=== PATIENT | male | born 1960 | race African-American/Black ===

== ENCOUNTER 2016-06-02 10:03 | Inpatient (IN) | payer MEDICARE, MEDICAID ==
[~2016-06-02] VITALS: Ht 172.7 cm; Wt 86.2 kg
[~2016-06-02 10:03] MED LIST: FENTANYL1 EAC3 TDERMAL; IBUPROFEN600 MG ORAL; LORTAB 10 MG-3473 ML PO; NEXIUM40 M2 ORAL; NEXIUM40 MG ORAL; OXYCODONE HCL30 MG ORAL; PERCOCET 5-3251 EACH ORAL; SOMA350 MG PO
[2016-06-02] MEDS ORDERED: NORVASC10 MG ORAL (10:17)
[2016-06-02] MEDS ORDERED: CATAPRES0.1 MG ORAL (10:17)
[2016-06-02 10:50] LABS: BASOPHILS % (AUTO) 1.2 % (0.0-2.0); LYMPHOCYTES % (AUTO) 23.1 % (20.0-45.0); MEAN CORPUSCULAR HEMOGLOBIN 31.6 PG (27.0-31.0); MEAN CORPUSCULAR HGB CONC 32.2 G/DL (32.0-36.0); MEAN CORPUSCULAR VOLUME 98 FL (80-99); NEUTROPHILS % (AUTO) 67.7 % (45.0-75.0); PLATELET COUNT 216 K/UL (150-450); RED BLOOD COUNT 4.43 M/UL (4.70-6.10); WHITE BLOOD COUNT 6.9 K/UL (4.8-10.8)
[2016-06-02 11:06] LABS: ALANINE AMINOTRANSFERASE 9 U/L (3-41); ALBUMIN/GLOBULIN RATIO 1.2 (1.0-2.7); ANION GAP 12 (5-15); ASPARTATE AMINO TRANSFERASE 14 U/L (5-40); CALCIUM 9.6 mg/dL (8.6-10.2); CARBON DIOXIDE 27 mEQ/L (20-30); CHLORIDE 101 mEQ/L (98-107); GLOMERULAR FILTRATION RATE > 60 mL/min (>60); HEMOLYSIS 3; POTASSIUM 4.7 mEQ/L (3.4-4.9); SODIUM 140 mEQ/L (135-145); TOTAL PROTEIN 7.4 g/dL (6.6-8.7); TROPONIN I < 0.30 ng/mL (<=0.30)
[2016-06-02 11:16] LABS: CKMB 2.5 ng/mL (< 6.7)
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
[2016-06-02] MEDS ORDERED: Aspirin Baby 81mg ORAL ONE (12:30)
[2016-06-02] MEDS ORDERED: Morphine Sulfate 2mg/ml Inj IVP PRN (13:00)
[2016-06-02] MEDS ORDERED: LORazepam Inj 2mg/ml 1ml IV PRN (13:00)
[2016-06-02] MEDS ORDERED: Miralax 17gm pkt ORAL PRN (13:00)
[2016-06-02] MEDS ORDERED: Mylanta II UD 30ml ORAL PRN (13:00)
[2016-06-02 13:34] VITALS: BP 113/55
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
[2016-06-02 14:34] VITALS: BP 107/59
[2016-06-02] MEDS: Oxycodone/Acetaminophen 5-325 ORAL ONE ×2 (15:08→15:11)
[2016-06-02] MEDS: Morphine Sulfate 2mg/ml Inj IVP PRN ×2 (15:40→19:50)
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
[2016-06-02 17:10] VITALS: BP 139/77
[2016-06-02 20:00] VITALS: BP 149/78
[2016-06-02] MEDS: Zolpidem 5mg tab ORAL PRN (22:42)
[2016-06-02 23:54] VITALS: BP 149/85
[2016-06-03] MEDS: Morphine Sulfate 2mg/ml Inj IVP PRN ×3 (00:28→08:46)
[2016-06-03 04:30] VITALS: BP 152/85
[2016-06-03 07:30] LABS: ALANINE AMINOTRANSFERASE 8 U/L (3-41); ALBUMIN/GLOBULIN RATIO 1.4 (1.0-2.7); ANION GAP 12 (5-15); ASPARTATE AMINO TRANSFERASE 12 U/L (5-40); CALCIUM 9.3 mg/dL (8.6-10.2); CARBON DIOXIDE 28 mEQ/L (20-30); CHLORIDE 104 mEQ/L (98-107); CHOLESTEROL 253 mg/dL (< 200); CHOLESTEROL/HDL RATIO 4.6 (3.3-4.4); GLOMERULAR FILTRATION RATE > 60 mL/min (>60); HEMOLYSIS 6; LDL CHOLESTEROL (CALC.) 169 mg/dL (60-99); POTASSIUM 4.6 mEQ/L (3.4-4.9); SODIUM 144 mEQ/L (135-145); TOTAL PROTEIN 6.7 g/dL (6.6-8.7)
[2016-06-03 07:40] LABS: BASOPHILS % (AUTO) 1.7 % (0.0-2.0); EOSINOPHILS % (AUTO) 1.6 % (0.0-3.0); LYMPHOCYTES % (AUTO) 29.3 % (20.0-45.0); MEAN CORPUSCULAR HEMOGLOBIN 32.7 PG (27.0-31.0); MEAN CORPUSCULAR HGB CONC 33.5 G/DL (32.0-36.0); MEAN CORPUSCULAR VOLUME 98 FL (80-99); MEAN PLATELET VOLUME 9.3 FL (6.5-10.1); MONOCYTES % (AUTO) 9.8 % (1.0-10.0); NEUTROPHILS % (AUTO) 57.7 % (45.0-75.0); PLATELET COUNT 195 K/UL (150-450); RED BLOOD COUNT 4.18 M/UL (4.70-6.10); RED CELL DISTRIBUTION WIDTH 13.5 % (11.6-14.8); WHITE BLOOD COUNT 6.5 K/UL (4.8-10.8)
[2016-06-03 07:59] LABS: TROPONIN I < 0.30 ng/mL (<=0.30)
[2016-06-03 08:57] VITALS: BP 145/65
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
[2016-06-03] MEDS: HYDROmorphone 1mg/ml Carpuject IVP PRN ×3 (13:13→22:16)
[2016-06-03] MEDS: Oxycodone/Acetaminophen 5-325 ORAL PRN ×2 (16:27→19:59)
[2016-06-03 16:29] VITALS: BP 135/75
[2016-06-03 20:00] VITALS: BP 118/80
[2016-06-03 23:47] VITALS: BP 141/87
[2016-06-03] MEDS: Zolpidem 5mg tab ORAL PRN (23:49)
[2016-06-04] VITALS: BP 141/87
[2016-06-04] MEDS: Oxycodone/Acetaminophen 5-325 ORAL PRN (00:41)
[2016-06-04] MEDS: HYDROmorphone 1mg/ml Carpuject IVP PRN ×2 (02:06→06:18)
[2016-06-04 04:00] VITALS: BP 144/77
[2016-06-04 08:00] VITALS: BP 135/86
--- NOTE | 2016-06-04 10:15 | Consultation ---
History of Present Illness General Date patient seen: Jun 04, 2016 Present Illness Allergies: Coded Allergies: No Known Allergies (Verified , 07/05/09) Medication History Scheduled Amlodipine Besylate (Norvasc), 10 MG ORAL DAILY, (Reported) Atorvastatin Calcium* (Lipitor*), 10 MG ORAL BEDTIME Carisoprodol* (Soma*), Unknown Dose PO Q6H, (Reported) Clonidine Hcl* (Catapres*), 0.1 MG ORAL DAILY, (Reported) Esomeprazole Magnesium (Nexium), 40 MG ORAL DAILY Scheduled PRN Fentanyl 100MCG Patch* (Fentanyl 100MCG Patch*), 1 PATCH TDERMAL EVERY 72 HOURS PRN for For Pain, (Reported) Oxycodone Hcl (Oxycodone Hcl), 30 MG ORAL Q6H PRN for For Pain, (Reported) Discontinued Medications Hydrocodone/Acetaminophen (Lortab 10 mg-300 mg/15 ml Elxr), Unknown Dose PO PRN, (Reported) Discontinued Reason: Therapy completed Ibuprofen* (Motrin*), 600 MG ORAL Q8H PRN for For Pain Discontinued Reason: Therapy completed Oxycodone/Acetaminophen 5-325* (Percocet 5-325 Mg Tablet*), 15 TAB ORAL Q4H PRN for For Pain Discontinued Reason: Therapy completed Patient History Healthcare decision maker Resuscitation status Full Code Advanced Directive on File No Physical Exam Last 24 Hour Vital Signs Date Time Temp Pulse Resp B/P Pulse Ox O2 Delivery O2 Flow Rate FiO2 06/04/16 09:23 135/86 06/04/16 09:23 61 135/86 06/04/16 04:00 96.8 55 20 144/77 100 Room Air 06/04/16 03:54 57 06/04/16 00:03 53 06/03/16 23:47 96.8 63 20 141/87 Room Air 06/03/16 20:00 97.9 73 18 118/80 98 Room Air 06/03/16 19:20 70 06/03/16 16:30 74 06/03/16 16:29 97.3 57 19 135/75 97 Room Air Intake and Output 06/03/16 06/04/16 19:00 07:00 Intake Total 200 ml Balance 200 ml Intake Oral 200 ml # Voids 2 3 Height (Feet): 5 Height (Inches): 8.00 Weight (Pounds): 190 Medications Current Medications Medications (Trade) Dose Ordered Sig/Lm Route PRN Reason Start Time Stop Time Status Last Admin Dose Admin Acetaminophen (Tylenol) 650 mg Q4H PRN ORAL fever 06/02/16 13:00 07/02/16 12:59 Al Hydroxide/Mg Hydroxide (Mylanta II) 30 ml Q6H PRN ORAL dyspepsia 06/02/16 13:00 07/02/16 12:59 Amlodipine Besylate (Norvasc) 10 mg DAILY ORAL 06/03/16 09:00 07/03/16 08:59 06/04/16 09:23 Atorvastatin Calcium (Lipitor) 10 mg BEDTIME ORAL 06/03/16 21:00 07/03/16 20:59 06/03/16 22:17 Carisoprodol (Soma) 350 mg Q6H ORAL 06/03/16 00:00 07/03/16 00:00 06/04/16 06:22 Clonidine HCl (Catapres) 0.1 mg DAILY ORAL 06/03/16 09:00 07/03/16 08:59 06/04/16 09:23 Dextrose (Dextrose 50%) STAT PRN IV Hypoglycemia 06/02/16 13:00 07/02/16 12:59 Fentanyl (Duragesic) 1 patch EVERY 72 HOURS TDERMAL 06/03/16 17:00 06/10/16 16:59 06/03/16 16:55 Hydromorphone HCl (Dilaudid) 1 mg Q4H PRN IVP Severe Pain (Pain Scale 7-10) 06/03/16 12:15 06/10/16 12:14 06/04/16 06:18 Ibuprofen (Motrin) 600 mg Q8H PRN ORAL mild pain 06/02/16 13:00 07/02/16 12:59 06/03/16 17:59 Lorazepam (Ativan 2mg/ml 1ml) 0.5 mg Q4H PRN IV For Anxiety 06/02/16 13:00 06/09/16 12:59 Ondansetron HCl (Zofran) 4 mg Q6H PRN IVP Nausea & Vomiting 06/02/16 13:00 07/02/16 12:59 06/02/16 15:40 Oxycodone/ Acetaminophen (Percocet 5-325) 1 tab Q4H PRN ORAL Moderate Pain (Pain Scale 4-6) 06/02/16 13:00 06/09/16 12:59 06/04/16 00:41 Polyethylene Glycol (Miralax) 17 gm HSPRN PRN ORAL Constipation 06/02/16 13:00 07/02/16 12:59 Zolpidem Tartrate (Ambien) 5 mg HSPRN PRN ORAL Insomnia 06/02/16 13:00 07/02/16 12:59 06/03/16 23:49 Assessment/Plan Assessment/Plan (1) Lumbar and Cervical DDD (2) Lumbar and Cervical Spondylosis (3) Lumbar and Cervical Radiculopathy (4) H/O Lumbar and Cervical Fusion (5) Lumbar and Cervical sprain Seen Dictated APRIL RAY Jun 04, 2016 10:15
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
[2016-06-04] MEDS ORDERED: LIPITOR10 MG ORAL (10:42)
--- NOTE | 2016-06-04 10:44 | Discharge Instructions ---
Discharge Instructions Discharge Instructions Follow up with: PMD and pain speialist Call MD/Return to Hospital if: headaches, dizziness, blackouts, Diet: cardiac 2 GM Na, low fat Activity: resume normal activities, as tolerated For Congestive Heart Failure Reminder Report to your physician any weight gain of 5 pounds or more in one week. Gurjit ([facility]),Brina GONZALES Jun 04, 2016 10:44
[2016-06-04 12:00] VITALS: BP 122/72
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
--- NOTE | 2016-06-06 18:06 | Cardiology Report ---
APPROVED REPORT EKG Measurement Heart [id number] Sinus bradycardia Cannot rule out Inferior infarct, age undetermined Abnormal ECG
--- NOTE | 2016-06-06 23:16 | Diagnostic Imaging Report ---
APPROVED REPORT CPT Code: 96858 Present Symptoms Lower Extremity Pain: Bilateral BILATERAL: Imaging reveals a patent deep venous system bilaterally. There is no evidence of thrombus within the femoral, popliteal or tibial segments. The greater saphenous veins are also within normal limits. Doppler indicates normal spontaneous flow within these segments.
== END 2016-06-04 12:45 | disposition home or self-care (01) | DRG 605 ==
LOC: EMR 10:30 → 2E 11:36 → EDBEDREQ 12:13 → 2E 18:03 → EMR 18:03 → 2E 19:18
DX: S00.93XA Contusion of unspecified part of head, initial encounter (principal); I10 Essential (primary) hypertension; V89.2XXA Person injured in unspecified motor-vehicle accident, traffic, initial encounter; Y92.410 Unspecified street and highway as the place of occurrence of the external cause; R00.1 Bradycardia, unspecified; Z98.1 Arthrodesis status; M54.16 Radiculopathy, lumbar region; M54.12 Radiculopathy, cervical region; M47.892 Other spondylosis, cervical region; M47.896 Other spondylosis, lumbar region; F17.200 Nicotine dependence, unspecified, uncomplicated; R42 Dizziness and giddiness
CPT/HCPCS: 36415; 70450; 71010; 72125; 80053; 80061; 82550; 82553; 84443; 84484; 85025; 93005; 93970; J2405

== ENCOUNTER → 2017-10-01 | Outpatient (CLI) | payer MEDICARE, MEDICAID ==
[~2017-10-01] MED LIST changes: +CATAPRES0.1 MG ORAL; +LIPITOR10 MG ORAL; +NORVASC10 MG ORAL
--- NOTE | 2017-10-01 15:45 | Diagnostic Imaging Report ---
Indication: Sacroiliac joint pain Comparison: None Findings: 3 views obtained. There is arthrosis involving the sacroiliac joints bilaterally characterized by vacuum phenomena subchondral sclerosis. Bones are osteopenic. IMPRESSION: Sacroiliac arthrosis
--- NOTE | 2017-10-01 15:48 | Diagnostic Imaging Report ---
Indication: Back pain Comparison: None Findings: 3 views of the lumbar spine were obtained. Lower lumbar fusion demonstrated at L4, L5 and S1 with bilateral pedicle screws and fusion rods. Laminectomies also noted as well as discectomy. Degenerative changes are demonstrated at L3-4 with endplate spur formation and narrowed disc. Bones are osteopenic. There is no fracture seen. There is no malalignment. IMPRESSION: Lower lumbar laminectomy and fusion as described above. Degenerative changes demonstrated. No acute injury
== END | disposition home or self-care (01) ==
LOC: RAD 14:45
DX: M96.1 Postlaminectomy syndrome, not elsewhere classified (principal); M47.898 Other spondylosis, sacral and sacrococcygeal region
CPT/HCPCS: 72020; 72202